=== PATIENT | female | born 1990 | race Caucasian/White ===

== ENCOUNTER 2024-02-07 02:16 | Inpatient (IN) ==
[2024-02-07 04:27] LABS: ABS Basophils 0.1 10^3/uL (0.0-0.1); ABS Lymphocytes 2.2 10^3/uL (1.0-4.8); ABS Monocytes 0.8 10^3/uL (0.0-0.9); ABS Neutrophils 11.1 10^3/uL (1.5-7.6); Eosinophil % 0.3 %; Hemoglobin 12.5 g/dL (11.5-14.3); Lymphocyte % 15.2 %; Mean Corpuscular Hemoglobin 29.9 pg (27-33); Mean Corpuscular Hgb Conc 33.8 g/dL (31-36); Mean Corpuscular Volume 88.6 fL (80-97); Mean Platelet Volume 8.6 fL (7.5-11.2); Platelet Count 309 10^3/uL (150-450); Red Blood Count 4.17 10^6/uL (3.63-4.92); Red Cell Distribution Width 14.3 % (12-17); White Blood Count 14.2 10^3/uL (3.8-11.8)
[2024-02-07 04:46] LABS: Urine Benzodiazepine Screen None Detected (None Detect); Urine Cannabinoids Screen None Detected (None Detect); Urine Opiates Screen None Detected (None Detect)
[2024-02-07] MEDS: Lactated Ringers 1000 ml BAG 1,000 ML IV ONE ×2 (05:42→06:54)
[2024-02-07] MEDS ORDERED: Ondansetron 4 mg VIAL 2 MG/ML 2 ml VIAL IV PRN (05:48)
[2024-02-07] MEDS: Lidocaine 1.5% EPI 1:200,000 30 ML SDV ONE (06:23)
[2024-02-07] MEDS: OBEPIDURAL (200 ML) 200 ML EPIDURAL ONE (06:28)
[2024-02-07] MEDS: Lidocaine 1% VIAL 10 MG/ML 30 ML VIAL INJ PRN (06:29)
[2024-02-07] MEDS ORDERED: Sodium Citrate/Citric Acid LIQ 15 ML UDC PO PRN (06:37)
[2024-02-07] MEDS ORDERED: Phenylephrine 40 mcg/mL 10mL (400mcg) SYRINGE IV PUSH PRN ×2 (06:37)
[2024-02-07] MEDS: Lactated Ringers 1000 ml BAG 1,000 ML IV SCH (06:54)
[2024-02-07] MEDS ORDERED: OBEPIDURAL (200 ML) 200 ML EPIDURAL SCH (07:00)
[2024-02-07] MEDS: Oxytocin in LR 20,000 MILLI.UNIT/1,000 ML BAG IV SCH ×2 (08:47→19:00)
[2024-02-07 09:02] LABS: Urine Appearance Cloudy; Urine Color Yellow
[2024-02-07 09:03] LABS: Urine Bilirubin Negative (Negative); Urine Blood 1+ (Small) (Negative); Urine Ketones Negative (Negative); Urine Nitrite Negative (Negative); Urine Protein Negative (Negative); Urine Specific Gravity 1.025 (1.005-1.030); Urine Urobilinogen 0.2 (Negative) (Negative)
[2024-02-07] MEDS ORDERED: Glycerin ADULT 2.4 gm SUPP PR PRN (14:42)
[2024-02-07] MEDS ORDERED: Lactated Ringers 1000 ml BAG 1,000 ML IV SCH (15:00)
[2024-02-07] MEDS: Witch Hazel PAD JAR TOPICAL PRN (15:08)
[2024-02-07] MEDS: Dibucaine 1% OINT 28.35 GM TUBE PR PRN (15:08)
[2024-02-07] MEDS: Phenylephrine 40 mcg/mL 10mL (400mcg) SYRINGE ONE (21:29)
[2024-02-08 08:42] LABS: ABS Basophils 0.2 10^3/uL (0.0-0.1); ABS Lymphocytes 2.6 10^3/uL (1.0-4.8); ABS Monocytes 1.1 10^3/uL (0.0-0.9); ABS Neutrophils 13.5 10^3/uL (1.5-7.6); ABS Nucleated RBC 0.01 10^3/ul; Eosinophil % 0.3 %; Mean Corpuscular Hemoglobin 29.7 pg (27-33); Mean Corpuscular Hgb Conc 33.3 g/dL (31-36); Mean Platelet Volume 8.2 fL (7.5-11.2); Nucleated Red Blood Cells % 0.1 %/100WBC (0.0-0.8); Platelet Count 248 10^3/uL (150-450); Red Blood Count 3.37 10^6/uL (3.63-4.92); Red Cell Distribution Width 14.6 % (12-17); White Blood Count 17.4 10^3/uL (3.8-11.8)
[2024-02-08] MEDS: RHO D Immune Globulin (HUMAN) 300 MCG = 1,500 I.U. INJ IM PRN (16:06)
[2024-02-09 08:19] VITALS: BP 126/71
== END 2024-02-09 18:15 | disposition home or self-care (01) | DRG 560 ==
LOC: MCHOBOUT 02:16 → MCHOB 04:10
PROVIDERS: ADMIT Midwife; ATTEND Advanced Practice Midwife